=== PATIENT | male | born 1995 | race American Indian/Alaskan Native ===

== ENCOUNTER 2021-07-15 06:42 | Emergency (ER) | payer SELFPAY ==
[2021-07-15 07:50] VITALS: BP 123/84
[2021-07-15] MEDS ORDERED: ACETAMINOPHEN 500 MG TAB PO ONE (14:59)
[2021-07-15] MEDS ORDERED: IBUPROFEN 600 MG TAB PO ONE (14:59)
--- NOTE | 2021-07-15 15:47 | Emergency Department Report ---
ED General Adult HPI - General Chief complaint: Urogenital-Male Stated complaint: GROIN PAIN Time Seen by Provider: 07/15/21 09:28 Source: patient Mode of arrival: Ambulatory Limitations: No Limitations - History of Present Illness Initial comments: Patient is a 26-year-old -[place] male with no past medical history presents to the ED with complaint of acute onset painful swollen mild erythematous maculopapular rash with thick purulent discharge in the left inguinal area for the last 1 week. Patient states that the pain and the swelling worsened in the last 4 days. Patient states that walking makes the pain worse. Patient denies dizziness, syncope, nausea and vomiting, fever, chills, traumatic injury, dysuria, urinary frequency and urgency, testicular pain, chest pain or shortness of breath. MD Complaint: painful swollen left inguinal rash with purulent discharge -: Sudden, week(s) (1) Location: lower extremity (Left inguinal area) Radiation: non-radiation Severity scale (0 -10): 10 Quality: aching, sharp Consistency: constant Improves with: none Worsens with: movement Associated Symptoms: denies other symptoms, rash (Swollen, painful erythematous maculopapular rash with discharge). denies: confusion, chest pain, cough, diaphoresis, fever/chills, headaches, loss of appetite, malaise, nausea/vomiting, seizure, shortness of breath, syncope, weakness Treatments Prior to Arrival: none - Related Data Previous Rx's Medication Instructions Recorded Last Taken Type Ibuprofen [Motrin] 600 mg PO Q8H PRN #30 tablet 07/15/21 Unknown Rx Sulfamethoxazole/Trimethoprim 1 each PO Q12H #20 tab 07/15/21 Unknown Rx [Bactrim DS TAB] Allergies Allergy/AdvReac Type Severity Reaction Status Date / Time No Known Allergies Allergy Verified 07/15/21 07:50 ED Review of Systems ROS: Stated complaint: GROIN PAIN Other details as noted in HPI Constitutional: denies: chills, fever Eyes: denies: eye pain, eye discharge, vision change ENT: denies: ear pain, throat pain Respiratory: denies: cough, shortness of breath, wheezing Cardiovascular: denies: chest pain, palpitations Endocrine: no symptoms reported Gastrointestinal: denies: abdominal pain, nausea, diarrhea Genitourinary: denies: urgency, dysuria Musculoskeletal: denies: back pain, joint swelling, arthralgia Skin: rash (Mild erythematous maculopapular painful rash with discharge on the left inguinal area), change in color. denies: lesions, change in hair/nails, pruritus Neurological: denies: headache, weakness, paresthesias Psychiatric: denies: anxiety, depression Hematological/Lymphatic: denies: easy bleeding, easy bruising ED Past Medical Hx - Past Medical History Previous Medical History?: Yes Additional medical history: hernia - Social History Smoking Status: Heavy Tobacco Smoker Substance Use Type: None - Medications Home Medications: Home Medications Medication Instructions Recorded Confirmed Last Taken Type Ibuprofen [Motrin] 600 mg PO Q8H PRN #30 tablet 07/15/21 Unknown Rx Sulfamethoxazole/Trimethoprim 1 each PO Q12H #20 tab 07/15/21 Unknown Rx [Bactrim DS TAB] ED Physical Exam - General Limitations: No Limitations General appearance: alert, in no apparent distress - Head Head exam: Present: atraumatic, normocephalic, normal inspection - Eye Eye exam: Present: normal appearance, PERRL, EOMI Pupils: Present: normal accommodation - ENT ENT exam: Present: normal exam, normal orophraynx, mucous membranes moist, TM's normal bilaterally, normal external ear exam - Neck Neck exam: Present: normal inspection, full ROM. Absent: tenderness - Respiratory Respiratory exam: Present: normal lung sounds bilaterally. Absent: respiratory distress, wheezes, rales, rhonchi, stridor, chest wall tenderness, accessory muscle use, decreased breath sounds, prolonged expiratory - Cardiovascular Cardiovascular Exam: Present: normal rhythm, tachycardia, normal heart sounds. Absent: systolic murmur, diastolic murmur, rubs, gallop - GI/Abdominal GI/Abdominal exam: Present: soft, normal bowel sounds. Absent: tenderness, guarding, rebound, hyperactive bowel sounds, hypoactive bowel sounds, organomegaly, mass - Extremities Exam Extremities exam: Present: normal inspection, full ROM, normal capillary refill. Absent: tenderness - Back Exam Back exam: Present: normal inspection, full ROM. Absent: tenderness, CVA tenderness (R), CVA tenderness (L), muscle spasm, paraspinal tenderness, vertebral tenderness - Neurological Exam Neurological exam: Present: alert, oriented X3, CN II-XII intact, normal gait, reflexes normal - Psychiatric Psychiatric exam: Present: normal affect, normal mood - Skin Skin exam: Present: warm, dry, intact, normal color, rash (Mildly erythematous maculopapular tenderRash with thick purulent discharge on left inguinal area), erythema ED Course Vital Signs 07/15/21 07:45 Temperature 98.1 F Pulse Rate 111 H Respiratory 14 Rate Blood Pressure 123/84 O2 Sat by Pulse 100 Oximetry ED Medical Decision Making - Medical Decision Making This is a A0 23-year-old -[place] female who is approximately 14 weeks gestation presents to the ED with acute onset low back pain that radiates to the buttocks for the last 1 week. Patient states that she has been taking Tylenol with no relief. In the ED, patient is alert and oriented x3 and is not in any distress but tachycardic and afebrile in triage. Patient was treated for pain in the ED and did wound was dressed appropriately with 4 x 4 gauzes. Patient was discharged home on pain medications and antibiotics and advised to follow-up with his primary care physician in 7 to 10 days for reevaluation or return to the ED immediately if symptoms get worse. - Differential Diagnosis Acute folliculitis; cellulitis; cutaneous abscess Critical care attestation.: If time is entered above; I have spent that time in minutes in the direct care of this critically ill patient, excluding procedure time. ED Disposition Clinical Impression: Cellulitis of left groin, Abscess of left groin, Acute folliculitis Disposition: HOME / SELF CARE / HOMELESS Is pt being admited?: No Does the pt Need Aspirin: No Condition: Stable Instructions: Cellulitis, Adult, [id number], Skin Abscess, [id number], Folliculitis Additional Instructions: Take medication with food, drink plenty of fluids and follow-up with your primary care physician in 7 to 10 days for reevaluation. Return to the ED immediately if symptoms get worse. Prescriptions: Sulfamethoxazole/Trimethoprim [Bactrim DS TAB] 1 each PO Q12H #20 tab Ibuprofen [Motrin] 600 mg PO Q8H PRN #30 tablet PRN Reason: Pain Referrals: MIGUEL A MENDIOLA MD [Primary Care Provider] - 3-5 Days Time of Disposition: 15:48 Print Language: GIBRALTAR[place]
== END 2021-07-15 16:18 | disposition home or self-care (01) ==
LOC: ED 06:42
DX: L03.314 Cellulitis of groin (principal); L02.214 Cutaneous abscess of groin; L73.9 Follicular disorder, unspecified; F17.200 Nicotine dependence, unspecified, uncomplicated
CPT/HCPCS: 99283